=== PATIENT | male | born 2000 | race Caucasian/White ===

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

== ENCOUNTER → 2023-04-15 | Emergency (ER) | payer OTHER ==
[~2023-04-15] VITALS: Ht 170.2 cm; Wt 63.5 kg
[~2023-04-15] MED LIST: PANTOPRAZOLE SO40 MG PO
== END | disposition left against medical advice (07) ==
LOC: ER 21:54 → EMR PED 22:09
DX: Z53.21 Procedure and treatment not carried out due to patient leaving prior to being seen by health care provider (principal)